=== PATIENT | male | born 1960 | race Caucasian/White ===

== ENCOUNTER 2023-10-25 03:36 | Emergency (ER) | payer BC ==
[2023-10-25] MEDS ORDERED: Ketorolac Tromethamine 30 MG (1 mL) VIAL ONE (04:16)
[2023-10-25 04:23] LABS: #Eosinphils 0.2 10x3/uL (0.0-0.5); #Monocytes 0.4 10x3/uL (0.0-1.1); #Neutrophils 1.8 10x3/uL (1.5-8.4); %Basophils 0.7 % (0.0-2.0); %Eosinophils 4.3 % (0.0-6.0); %Lymphocytes 55.8 % (18.0-47.0); %Monocytes 6.4 % (0.0-10.0); %Neutrophils 32.8 % (40.0-75.0); Hematocrit 42.1 % (38.8-50.0); Hemoglobin 14.8 g/dL (13.5-17.5); Mean Corpuscular HGB CONC 35.2 g/dL (32.0-36.0); Mean Corpuscular Hemoglobin 33.3 pg (27.0-33.0); Mean Corpuscular Volume 94.8 fl (81.2-95.1); Mean Platelet Volume 10.1 fl (7.4-10.4); Platelet Count 208 10x3/uL (150-450); RBC Distribution Width 12.5 % (11.5-14.5); Red Blood Cell (RBC) Count 4.44 10x6/uL (4.32-5.72); White Blood Cell (WBC) Count 5.6 10x3/uL (3.5-10.5)
[2023-10-25 04:31] LABS: Bilirubin Neg (Negative); Blood, Urine 250 (Negative); Glucose, Urine (Dipstick) Normal (Negative); Ketone, Urine Negative (Negative); Leukocyte Negative (Negative); Nitrite Negative (Negative); Protein, Urine (Dipstick) 30 mg/dl (Neg-Trace); Specific Gravity, Urine 1.025 (1.005-1.030); Urobilinogen Normal mg/dL (Less than 2)
[2023-10-25 04:37] LABS: ALT (SGPT) 17 U/L (8-55); AST (SGOT) 24 U/L (5-34); Albumin 4.5 g/dL (3.4-4.8); Alkaline Phosphatase 56 U/L (40-110); Anion Gap 13 mmol/L (10-20); BUN (Urea Nitrogen) 23 mg/dL (8.4-25.7); Bilirubin, Total 0.5 mg/dL (0.2-1.2); Calc. Creatinine Clearance 0 mL/min (70-130); Calcium 9.1 mg/dL (7.8-10.44); Carbon Dioxide 24 mmol/L (23-31); Chloride 107 mmol/L (98-107); Estimated GFR 91; Globulin 2.4 g/dL (2.4-3.5); Glucose 90 mg/dL (80-115); Potassium 3.9 mmol/L (3.5-5.1); Protein, Total 6.9 g/dL (5.8-8.1); Sodium 140 mmol/L (136-145)
[2023-10-25 04:38] LABS: Clarity Slightly Cloudy (Clear)
[2023-10-25 04:50] LABS: CAUTI Indications for Culture Dysuria,urgency,freq; Calcium Oxalate Crystals 2+ HPF (None Seen); Squamous Epithelial None Seen HPF (0-3); WBC/HPF None Seen HPF (0-3)
[2023-10-25 04:51] LABS: Urine Culture Reflex No No
[2023-10-25 04:52] LABS: Bacteria/HPF None Seen HPF (None Seen)
== END 2023-10-25 05:33 | disposition home or self-care (01) ==
LOC: CSHERS 03:36
DX: N13.2 Hydronephrosis with renal and ureteral calculous obstruction (principal)
CPT/HCPCS: 74176; 80053; 81001; 85025; 96374; J1885

== ENCOUNTER 2024-02-29 15:31 | Outpatient (CLI) | payer BC | END 2024-02-29 15:32 | disposition home or self-care (01) | LOC: CSHRAD 15:31 | PROVIDERS: ATTEND Urology | DX: N20.0 Calculus of kidney (principal) | CPT/HCPCS: 76770 ==